=== PATIENT | male | born 1945 ===

== ENCOUNTER 2021-05-16 07:05 | Inpatient (IN) ==
[2021-05-16 08:02] LABS: ABS Lymphocytes 0.7 10^3/ul (1.0-4.8); ABS Monocytes 0.3 10^3/ul (0-0.8); ABS Neutrophils 4.4 10^3/ul (1.5-7.7); Eosinophil % 0.5 %; Hematocrit 44 % (42-52); Lymphocyte % 12.7 %; Mean Corpuscular HGB Conc 34 g/dL (31-36); Mean Corpuscular Hemoglobin 31 pg (27-31); Mean Corpuscular Volume 91 fL (80-94); Mean Platelet Volume 7.9 fL (7.4-10.4); Platelet Count 149 10^3/uL (150-450); Red Blood Count 4.79 10^6 /uL (4.18-5.48); Red Cell Distribution Width 14 % (10-15); White Blood Count 5.5 10^3/uL (3.5-10.8)
[2021-05-16 08:23] LABS: Activated Partial Thrombo Time 31.4 seconds (26.0-38.0); INR 1.13 (0.86-1.15)
[2021-05-16] MEDS ORDERED: Bacitracin OINTMENT TUBE ONE (08:26)
[2021-05-16] MEDS ORDERED: Bacitracin OINTMENT TUBE TOPICAL ONE (08:30)
[2021-05-16] MEDS ORDERED: Lactated Ringers 1000 ml BAG 1,000 ML IV ONE (08:37)
[2021-05-16 08:42] LABS: Albumin 4.4 g/dL (3.2-5.2); Calcium 9.3 mg/dL (8.6-10.3); Globulin 2.2 g/dL (2-4); Total Bilirubin 3.2 mg/dL (0.2-1.0); Total Protein 6.6 g/dL (6.4-8.9); eGFR CKD-EPI 89.4 (>60)
[2021-05-16 09:00] LABS: Magnesium 1.9 mg/dL (1.9-2.7)
[2021-05-16 09:32] LABS: High Sensitivity Troponin 1 Hr 8 pg/mL (<20)
[2021-05-16 11:51] LABS: Direct Bilirubin 0.5 mg/dL (0.03-0.18); Indirect Bilirubin 2.7 mg/dL (0.3-1.0)
[2021-05-17 05:01] LABS: ABS Lymphocytes 1.4 10^3/ul (1.0-4.8); ABS Monocytes 0.7 10^3/ul (0-0.8); ABS Neutrophils 4.9 10^3/ul (1.5-7.7); Eosinophil % 0.6 %; Hematocrit 37 % (42-52); Hemoglobin 12.8 g/dL (14.0-18.0); Lymphocyte % 19.7 %; Mean Corpuscular HGB Conc 34 g/dL (31-36); Mean Corpuscular Hemoglobin 31 pg (27-31); Mean Corpuscular Volume 91 fL (80-94); Platelet Count 133 10^3/uL (150-450); Red Cell Distribution Width 14 % (10-15); White Blood Count 7.1 10^3/uL (3.5-10.8)
[2021-05-17 05:13] LABS: Calcium 8.7 mg/dL (8.6-10.3); Potassium 4.1 mmol/L (3.5-5.0); eGFR CKD-EPI 89.4 (>60)
[2021-05-17] MEDS: Aspirin EC 81 mg TAB.EC (enteric coated) PO SCH (10:30)
[2021-05-18] MEDS: Aspirin EC 81 mg TAB.EC (enteric coated) PO SCH (09:49)
[2021-05-19] MEDS: Aspirin EC 81 mg TAB.EC (enteric coated) PO SCH (08:07)
[2021-05-19 09:06] VITALS: BP 133/69
== END 2021-05-19 10:18 | DRG 204 ==
LOC: EDHOLD 07:05 → ED 07:05 → EDHOLD 13:19 → MEDTELE 13:57 → SUATTDRO 05-17 16:00
PROVIDERS: ADMIT Hospitalist; ATTEND Internal Medicine